=== PATIENT | female | born 1980 | race Caucasian/White ===

== ENCOUNTER 2020-01-13 03:40 | Emergency (ER) | payer MEDICARE, OTHER | END 2020-01-13 04:55 | disposition home or self-care (01) | LOC: ER 03:40 | DX: L08.9 Local infection of the skin and subcutaneous tissue, unspecified (principal); F17.200 Nicotine dependence, unspecified, uncomplicated | CPT/HCPCS: A9270-GY ==

== ENCOUNTER 2020-01-13 19:36 | Emergency (ER) | payer MEDICARE, OTHER ==
[~2020-01-13] VITALS: Ht 162.6 cm; Wt 81.7 kg
== END 2020-01-13 20:50 | disposition home or self-care (01) ==
LOC: ER 19:36
DX: L03.114 Cellulitis of left upper limb (principal); F17.210 Nicotine dependence, cigarettes, uncomplicated; Z88.0 Allergy status to penicillin; Z88.5 Allergy status to narcotic agent
CPT/HCPCS: 99282; A9270-GY